=== PATIENT | male | born 1995 | race Caucasian/White ===

== ENCOUNTER 2017-11-21 20:04 | Emergency (ER) | payer OTHER ==
[~2017-11-21] VITALS: Ht 172.7 cm; Wt 68.0 kg
[~2017-11-21 20:04] MED LIST: AMOXICILLIN 50500 M1 PO; AMOXICILLIN500 M1 PO; ATIVAN1 MG PO; BACTRIM DS TAB1 EACH; FLEXERIL PO; IBUPROFEN 800800 MG PO; MOBIC7.5 MG PO; NOHOMEMEDICATIONS; NORCO 5-325 TA1 EACH PO; PAROXETINE HCL10 MG PO; PROTONIX40 MG PO; PROZAC 10 MG CA10 MG PO; TEGRETOL XR200 MG PO; TESSALON PERLE100 MG PO; TOBRAMYCIN SULFA5 ML OP; VALIUM5 MG PO; [UNRECOGNIZED DRUG - REMARK]
[2017-11-21] MEDS ORDERED: FLEXERIL PO (20:14)
[2017-11-21 20:53] LABS: ABSOLUTE EOSINOPHILS 0.2 thou/uL (0.0-0.7); ABSOLUTE LYMPHOCYTES 1.4 thou/uL (0.8-5.3); ABSOLUTE MONOCYTES 0.7 thou/uL (0.0-1.2); ABSOLUTE NEUTROPHILS 6.4 thou/uL (1.6-8.1); BASOPHILS 0.5 %; EOSINOPHILS 1.8 %; HEMATOCRIT 39.9 % (42.0-52.0); HEMOGLOBIN 13.7 gm/dL (14.0-18.0); LYMPHOCYTES 16.4 %; MCH 31.5 pg (26.0-34.0); MCHC 34.3 g/dL (28.0-37.0); MCV 91.8 fL (80.0-100.0); MONOCYTES 7.9 %; MPV 8.1 fl. (7.2-11.1); NUCLEATED RBCS 0 /100WBC; PLATELET COUNT* 235 thou/uL (150-400); POLYS 73.4 %; RBC 4.35 mil/uL (4.50-6.00); WBC 8.7 thou/uL (4.0-11.0)
[2017-11-21 21:00] LABS: ANION GAP 2 mmol/L (7-16); BUN 9 mg/dL (7-18); CALCIUM 7.8 mg/dL (8.5-10.1); CHLORIDE 107 mmol/L (98-107); CO2 29 mmol/L (21-32); GLUCOSE 84 mg/dL (70-99); POTASSIUM 3.7 mmol/L (3.5-5.1); SODIUM 138 mmol/L (136-145)
[2017-11-21 21:08] LABS: ACETAMINOPHEN < 2 ug/mL (10-30); SALICYLATE < 2.8 mg/dL (2.8-20.0)
[2017-11-21 21:09] LABS: ALCOHOL < 10 mg/dL (<10)
[2017-11-21 21:11] LABS: ALBUMIN 2.9 g/dL (3.4-5.0); ALKALINE PHOSPHATASE 87 U/L (46-116); NT-PRO BRAIN NAT PEPTIDE 14 pg/mL (<300); SGOT 16 U/L (15-37); SGPT 18 U/L (30-65); TOTAL BILIRUBIN 0.4 mg/dL (<0.1-1.0); TOTAL PROTEIN 6.9 g/dL (6.4-8.2); TROPONIN-I LEVEL <0.06 ng/mL (<0.06)
[2017-11-21 21:27] VITALS: BP 127/50
[2017-11-21 21:37] LABS: INR 1.1; PROTIME 10.4 Seconds (9.20-11.50)
--- NOTE | 2017-11-22 10:44 | EKG ---
[place] [address] ELECTROCARDIOGRAM REPORT Name: FRANCES MALLOY [id number] Admission: 11/21/17 Attend Phys: Discharge: 11/21/17 Date of : [birth year] Report #: [id number] THIS REPORT FOR: //name// [facility] ED Test Date: 2017-11-21 Test Time: 20:07:28 Pat Name: FRANCES MALLOY Department: Room: Gender: M Magnetic Resonance Technologist: FREDDIE Rebolledo : 1995 Requested By: Bree Escobedo Order Number: [id number] MD: Jv Mejia Measurements Intervals [place] Rate: 96 P: 73 [place]: 135 QRS: 77 QRSD: 104 T: 42 QT: 333 QTc: 421 Interpretive Statements Sinus rhythm Probable left atrial enlargement ST elev, probable normal early repol pattern Compared to ECG 11/07/2016 03:14:02 ST (T wave) deviation still present Electronically Signed On 11-22-2017 10:44:44 CDT by Jv Mejia [email or web address] <ELECTRONICALLY SIGNED> By: Jv Mejia MD, [facility] 11/22/17 1044 06 06 Jv Mejia MD, [facility] /EPI
== END 2017-11-21 21:31 | disposition home or self-care (01) ==
LOC: M.ERS 20:04
PROVIDERS: Emergency Medicine
DX: T48.1X1A Poisoning by skeletal muscle relaxants [neuromuscular blocking agents], accidental (unintentional), initial encounter (principal); Y92.89 Other specified places as the place of occurrence of the external cause; C78.00 Secondary malignant neoplasm of unspecified lung; F41.9 Anxiety disorder, unspecified; F32.9 Major depressive disorder, single episode, unspecified; F17.210 Nicotine dependence, cigarettes, uncomplicated

== ENCOUNTER 2018-02-20 03:46 | Emergency (ER) | payer OTHER ==
[~2018-02-20] VITALS: Ht 180.3 cm; Wt 72.6 kg
[2018-02-20] MEDS ORDERED: RISPERDAL0.5 MG (03:54)
[2018-02-20 05:35] VITALS: BP 111/86
--- NOTE | 2018-02-20 13:04 | EKG ---
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 : 1995 Requested By: Bree Escobedo Order Number: [id number] MD: Jv Mejia Measurements Intervals [place] Rate: 102 P: 74 [place]: 144 QRS: 56 QRSD: 88 T: 59 QT: 329 QTc: 429 Interpretive Statements Sinus tachycardia Consider right atrial enlargement Borderline repolarization abnormality Compared to ECG 11/21/2017 20:07:28 Sinus rhythm no longer present ST (T wave) deviation now seen Electronically Signed On 02-20-2018 13:04:13 CDT by Jv Mejia [email or web address] <ELECTRONICALLY SIGNED> By: Jv Mejia MD, [facility] 02/20/18 1304 0400 0400 Jv Mejia MD, FAC /EPI
== END 2018-02-20 05:37 | disposition home or self-care (01) ==
LOC: M.ERS 03:46
DX: L53.9 Erythematous condition, unspecified (principal); T43.625A Adverse effect of amphetamines, initial encounter; F41.9 Anxiety disorder, unspecified; F32.9 Major depressive disorder, single episode, unspecified; F17.210 Nicotine dependence, cigarettes, uncomplicated; Y92.89 Other specified places as the place of occurrence of the external cause

== ENCOUNTER 2018-03-23 20:27 | Emergency (ER) | payer OTHER ==
[~2018-03-23] VITALS: Ht 170.2 cm; Wt 72.6 kg
[~2018-03-23 20:27] MED LIST changes: +RISPERDAL0.5 MG
[2018-03-23] MEDS ORDERED: FLEXERIL PO (20:36)
[2018-03-23] MEDS ORDERED: DEPAKOTE125 MG PO (20:36)
[2018-03-23 22:45] VITALS: BP 140/90
--- NOTE | 2018-03-25 11:11 | EKG ---
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 : 1995 Requested By: Bree Escobedo Order Number: [id number] MD: Julio Benitez Measurements Intervals [place] Rate: 119 P: 67 MS: 115 QRS: 74 QRSD: 82 T: -23 QT: 317 QTc: 447 Interpretive Statements Sinus tachycardia Right atrial enlargement Nonspecific T abnormalities, lateral leads Compared to ECG 02/20/2018 04:00:15 T-wave abnormality now present Electronically Signed On 03-25-2018 11:11:23 [employer]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
== END 2018-03-23 22:45 | disposition home or self-care (01) ==
LOC: M.ERS 20:27
DX: F15.10 Other stimulant abuse, uncomplicated (principal); F41.9 Anxiety disorder, unspecified; F32.9 Major depressive disorder, single episode, unspecified; Z90.49 Acquired absence of other specified parts of digestive tract; F17.210 Nicotine dependence, cigarettes, uncomplicated

== ENCOUNTER 2018-04-29 14:49 | Emergency (ER) | payer OTHER ==
[~2018-04-29] VITALS: Ht 170.2 cm; Wt 72.6 kg
[~2018-04-29 14:49] MED LIST changes: +DEPAKOTE125 MG PO
[2018-04-29] MEDS ORDERED: PRAZOSIN 1 MG CA1 M1 PO (15:01)
[2018-04-29] MEDS ORDERED: TRAZODONE 150150 M1 PO (15:01)
[2018-04-29] MEDS ORDERED: ACETAMINOPHEN-1 EAC1 PO (20:27)
[2018-04-29] MEDS ORDERED: NABUMETONE 750750 M1 PO (20:28)
[2018-04-29 20:30] VITALS: BP 141/76
== END 2018-04-29 20:30 | disposition left against medical advice (07) ==
LOC: M.ERS 14:49
DX: M79.621 Pain in right upper arm (principal); R20.2 Paresthesia of skin; F41.9 Anxiety disorder, unspecified; F32.9 Major depressive disorder, single episode, unspecified; F17.210 Nicotine dependence, cigarettes, uncomplicated; Z90.49 Acquired absence of other specified parts of digestive tract

== ENCOUNTER 2018-05-27 03:06 | Emergency (ER) | payer OTHER ==
[~2018-05-27] VITALS: Ht 170.2 cm; Wt 68.0 kg
--- NOTE | ~2018-05-27 | EKG ---
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
[~2018-05-27 03:06] MED LIST changes: +ACETAMINOPHEN-1 EAC1 PO; +NABUMETONE 750750 M1 PO; +PRAZOSIN 1 MG CA1 M1 PO; +TRAZODONE 150150 M1 PO
[2018-05-27 03:49] LABS: ABSOLUTE BASOPHILS 0.1 thou/uL (0.0-0.2); ABSOLUTE EOSINOPHILS 0.2 thou/uL (0.0-0.7); ABSOLUTE LYMPHOCYTES 0.9 thou/uL (0.8-5.3); ABSOLUTE MONOCYTES 0.9 thou/uL (0.0-1.2); ABSOLUTE NEUTROPHILS 5.1 thou/uL (1.6-8.1); BASOPHILS 0.8 %; EOSINOPHILS 2.6 %; HEMOGLOBIN 14.4 gm/dL (14.0-18.0); MCH 31.3 pg (26.0-34.0); MCHC 35.1 g/dL (28.0-37.0); MCV 89.1 fL (80.0-100.0); MONOCYTES 12.6 %; MPV 7.9 fl. (7.2-11.1); NUCLEATED RBCS 0 /100WBC; PLATELET COUNT* 200 thou/uL (150-400); RDW-CV 12.6 % (10.5-14.5); WBC 7.1 thou/uL (4.0-11.0)
[2018-05-27 03:53] VITALS: BP 171/92
[2018-05-27 04:07] LABS: ANION GAP 6 mmol/L (7-16); BUN 12 mg/dL (7-18); CALCIUM 8.5 mg/dL (8.5-10.1); CHLORIDE 104 mmol/L (98-107); CO2 29 mmol/L (21-32); CREATININE 1.2 mg/dL (0.6-1.3); GLUCOSE 105 mg/dL (70-99); POTASSIUM 3.7 mmol/L (3.5-5.1); SODIUM 139 mmol/L (136-145)
[2018-05-27 04:14] LABS: ALBUMIN 3.7 g/dL (3.4-5.0); ALKALINE PHOSPHATASE 94 U/L (46-116); SGOT 22 U/L (15-37); SGPT 26 U/L (30-65); TOTAL BILIRUBIN 0.6 mg/dL (<0.1-1.0); TOTAL PROTEIN 7.9 g/dL (6.4-8.2); TROPONIN-I LEVEL <0.06 ng/mL (<0.06)
== END 2018-05-27 03:55 | disposition left against medical advice (07) ==
LOC: M.ERS 03:06
PROVIDERS: Personal Emergency Response Attendant
DX: F15.129 Other stimulant abuse with intoxication, unspecified (principal); R07.89 Other chest pain; F17.210 Nicotine dependence, cigarettes, uncomplicated; F41.9 Anxiety disorder, unspecified; F32.9 Major depressive disorder, single episode, unspecified; Z90.49 Acquired absence of other specified parts of digestive tract

== ENCOUNTER 2018-07-18 22:48 | Emergency (ER) | payer OTHER ==
[~2018-07-18] VITALS: Ht 170.2 cm; Wt 70.3 kg
[2018-07-19 00:03] LABS: ABSOLUTE BASOPHILS 0.1 thou/uL (0.0-0.2); ABSOLUTE EOSINOPHILS 0.1 thou/uL (0.0-0.7); ABSOLUTE LYMPHOCYTES 1.7 thou/uL (0.8-5.3); ABSOLUTE MONOCYTES 0.7 thou/uL (0.0-1.2); ABSOLUTE NEUTROPHILS 8.1 thou/uL (1.6-8.1); BASOPHILS 0.8 %; EOSINOPHILS 0.9 %; HEMATOCRIT 41.2 % (42.0-52.0); HEMOGLOBIN 14.3 gm/dL (14.0-18.0); LYMPHOCYTES 15.5 %; MCHC 34.7 g/dL (28.0-37.0); MCV 89.6 fL (80.0-100.0); MONOCYTES 6.9 %; MPV 8.1 fl. (7.2-11.1); NUCLEATED RBCS 0 /100WBC; PLATELET COUNT* 266 thou/uL (150-400); POLYS 75.9 %; RDW-CV 13.2 % (10.5-14.5); WBC 10.6 thou/uL (4.0-11.0)
[2018-07-19 00:19] LABS: ANION GAP 11 mmol/L (7-16); BUN 14 mg/dL (7-18); CALCIUM 9.1 mg/dL (8.5-10.1); CHLORIDE 102 mmol/L (98-107); CO2 24 mmol/L (21-32); CREATININE 1.1 mg/dL (0.6-1.3); GLUCOSE 74 mg/dL (70-99); POTASSIUM 3.7 mmol/L (3.5-5.1); SODIUM 137 mmol/L (136-145); TROPONIN-I LEVEL <0.06 ng/mL (<0.06)
[2018-07-19 00:22] LABS: ALKALINE PHOSPHATASE 92 U/L (46-116); SGOT 22 U/L (15-37); SGPT 25 U/L (30-65); TOTAL BILIRUBIN 0.5 mg/dL (<0.1-1.0); TOTAL PROTEIN 8.6 g/dL (6.4-8.2)
[2018-07-19 01:17] VITALS: BP 144/89
--- NOTE | 2018-07-20 15:02 | EKG ---
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: : 1995 Requested By: Vero Snell Order Number: [id number] MD: Gregorio Peraza Measurements Intervals [place] Rate: 105 P: 82 [place]: 140 QRS: 70 QRSD: 95 T: 4 QT: 316 QTc: 418 Interpretive Statements Sinus tachycardia Biatrial enlargement Borderline T wave abnormalities Compared to ECG 05/27/2018 03:12:51 T-wave abnormality now present Sinus rhythm no longer present Electronically Signed On 07-20-2018 15:02:41 CDT by Gregorio Peraza [email or web address] <ELECTRONICALLY SIGNED> By: Gregorio Peraza MD, [facility] 07/20/18 1502 2255 2255 Gregorio Peraza MD, [facility] /EPI
== END 2018-07-19 01:17 | disposition left against medical advice (07) ==
LOC: M.ERS 22:48
PROVIDERS: Personal Emergency Response Attendant
DX: F15.10 Other stimulant abuse, uncomplicated (principal); F17.210 Nicotine dependence, cigarettes, uncomplicated; F41.9 Anxiety disorder, unspecified; F32.9 Major depressive disorder, single episode, unspecified; Z90.49 Acquired absence of other specified parts of digestive tract

== ENCOUNTER 2018-08-24 01:12 | Emergency (ER) | payer OTHER ==
[~2018-08-24] VITALS: Ht 170.2 cm; Wt 72.6 kg
[2018-08-24 01:59] VITALS: BP 189/92
== END 2018-08-24 02:00 | disposition home or self-care (01) ==
LOC: M.ERS 01:12
DX: M77.9 Enthesopathy, unspecified (principal); F41.9 Anxiety disorder, unspecified; F32.9 Major depressive disorder, single episode, unspecified; F17.210 Nicotine dependence, cigarettes, uncomplicated; Z90.49 Acquired absence of other specified parts of digestive tract

== ENCOUNTER 2018-09-14 09:00 | Emergency (ER) | payer OTHER ==
[~2018-09-14] VITALS: Ht 170.2 cm; Wt 72.6 kg
[2018-09-14 10:44] VITALS: BP 157/83
== END 2018-09-14 10:45 | disposition home or self-care (01) ==
LOC: M.ERS 09:00
DX: S01.111A Laceration without foreign body of right eyelid and periocular area, initial encounter (principal); S01.511A Laceration without foreign body of lip, initial encounter; F41.9 Anxiety disorder, unspecified; F32.9 Major depressive disorder, single episode, unspecified; Z90.49 Acquired absence of other specified parts of digestive tract; F17.210 Nicotine dependence, cigarettes, uncomplicated; X99.1XXA Assault by knife, initial encounter; Y93.89 Activity, other specified; Y92.89 Other specified places as the place of occurrence of the external cause; Y99.8 Other external cause status

== ENCOUNTER 2018-11-27 04:30 | Emergency (ER) | payer OTHER ==
[~2018-11-27] VITALS: Ht 170.2 cm; Wt 70.3 kg
[2018-11-27 05:03] LABS: ABSOLUTE LYMPHOCYTES 1.2 thou/uL (0.8-5.3); ABSOLUTE MONOCYTES 0.8 thou/uL (0.0-1.2); ABSOLUTE NEUTROPHILS 4.6 thou/uL (1.6-8.1); BASOPHILS 0.7 %; EOSINOPHILS 0.5 %; HEMATOCRIT 40.9 % (42.0-52.0); HEMOGLOBIN 13.8 gm/dL (14.0-18.0); MCH 30.2 pg (26.0-34.0); MCHC 33.8 g/dL (28.0-37.0); MCV 89.2 fL (80.0-100.0); MONOCYTES 11.8 %; MPV 8.1 fl. (7.2-11.1); NUCLEATED RBCS 0 /100WBC; PLATELET COUNT* 250 thou/uL (150-400); RBC 4.59 mil/uL (4.50-6.00); WBC 6.7 thou/uL (4.0-11.0)
[2018-11-27 05:14] LABS: ANION GAP 8 mmol/L (7-16); BUN 16 mg/dL (7-18); CALCIUM 8.8 mg/dL (8.5-10.1); CHLORIDE 106 mmol/L (98-107); CO2 26 mmol/L (21-32); CREATININE 1.2 mg/dL (0.6-1.3); GLUCOSE 121 mg/dL (70-99); POTASSIUM 3.9 mmol/L (3.5-5.1); SODIUM 140 mmol/L (136-145)
[2018-11-27 05:23] LABS: ALBUMIN 3.8 g/dL (3.4-5.0); ALKALINE PHOSPHATASE 91 U/L (46-116); SGOT 16 U/L (15-37); SGPT 26 U/L (30-65); TOTAL BILIRUBIN 0.4 mg/dL (<0.1-1.0); TOTAL PROTEIN 8.1 g/dL (6.4-8.2); TROPONIN-I LEVEL <0.06 ng/mL (<0.06)
[2018-11-27 06:41] VITALS: BP 121/64
--- NOTE | 2018-11-27 16:30 | EKG ---
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 : 1995 Requested By: Vero Snell Order Number: [id number] MD: Gregorio Peraza Measurements Intervals [place] Rate: 101 P: 81 [place]: 139 QRS: 57 QRSD: 90 T: 41 QT: 330 QTc: 428 Interpretive Statements Sinus tachycardia Compared to ECG 07/18/2018 22:55:51 Atrial abnormality no longer present T-wave abnormality no longer present Electronically Signed On 11-27-2018 16:29:53 CDT by Gregorio Peraza [email or web address] <ELECTRONICALLY SIGNED> By: Gregorio Peraza MD, [facility] 11/27/18 1629 0 0 Gregorio Peraza MD, FACC /EPI
== END 2018-11-27 06:43 | disposition home or self-care (01) ==
LOC: M.ERS 04:30
PROVIDERS: Personal Emergency Response Attendant
DX: F15.10 Other stimulant abuse, uncomplicated (principal); R07.89 Other chest pain; F41.9 Anxiety disorder, unspecified; F32.9 Major depressive disorder, single episode, unspecified; F17.210 Nicotine dependence, cigarettes, uncomplicated; Z90.49 Acquired absence of other specified parts of digestive tract

== ENCOUNTER 2019-03-26 16:45 | Inpatient (IN) | payer OTHER ==
[~2019-03-26] VITALS: Ht 170.2 cm; Wt 76.2 kg
--- NOTE | ~2019-03-26 | H ---
[address] [address] HISTORY AND PHYSICAL Name: FRANCES MALLOY Room: [address] M.R.#: [id number] Admission: 03/26/19 Attend Phys: Susan Leiva Discharge: 03/26/19 Date of : [birth year] Report #: [id number] THIS REPORT FOR: //name// Patient was here less than 24 hour please refer to the final summation note. Patient left against medical advice. By: 0701Medical Records Staff LETITIA /SHAY
[2019-03-26 16:59] VITALS: BP 171/90
[2019-03-26 17:25] LABS: CALCIUM 9.2 mg/dL (8.5-10.1); CREATININE 1.2 mg/dL (0.6-1.3); POTASSIUM 3.1 mmol/L (3.5-5.1)
[2019-03-26 17:27] LABS: INR 1.1; PROTIME 11.1 Seconds (9.20-11.50)
[2019-03-26 17:30] LABS: ALBUMIN 4.1 g/dL (3.4-5.0); TOTAL BILIRUBIN 0.6 mg/dL (<0.1-1.0); TOTAL PROTEIN 8.5 g/dL (6.4-8.2)
[2019-03-26 17:48] LABS: ABSOLUTE LYMPHOCYTES 1.7 thou/uL (0.8-5.3); ABSOLUTE MONOCYTES 0.9 thou/uL (0.0-1.2); ABSOLUTE NEUTROPHILS 6.8 thou/uL (1.6-8.1); BASOPHILS 0.3 %; EOSINOPHILS 0.2 %; HEMOGLOBIN 15.3 gm/dL (14.0-18.0); LYMPHOCYTES 17.8 %; MCH 31.5 pg (26.0-34.0); MCHC 34.7 g/dL (28.0-37.0); MONOCYTES 9.9 %; MPV 8.7 fl. (7.2-11.1); NUCLEATED RBCS 0 /100WBC; PLATELET COUNT* 275 thou/uL (150-400); POLYS 71.8 %; RBC 4.84 mil/uL (4.50-6.00); RDW-CV 13.2 % (10.5-14.5); WBC 9.4 thou/uL (4.0-11.0)
[2019-03-26 18:45] VITALS: BP 160/100
[2019-03-26 19:43] LABS: URINE BILIRUBIN NEGATIVE (Negative); URINE BLOOD NEGATIVE (Negative); URINE CLARITY SL CLOUDY; URINE COLOR YELLOW; URINE GLUCOSE-RANDOM NEGATIVE (Negative); URINE KETONES 1+ (Negative); URINE LEUKOCYTES-REFLEX NEGATIVE (Negative); URINE NITRITE-REFLEX NEGATIVE (Negative); URINE PROTEIN NEGATIVE (Negative); URINE SPECIFIC GRAVITY 1.015 (1.005-1.030); URINE UROBILINOGEN 0.2 E.U./dl (0.2-1.0)
[2019-03-26 19:53] LABS: BACTERIA-REFLEX 1-9 Few /HPF (None Seen); CASTS None Seen /LPF (None Seen); MUCUS 0-3 Light strn/LPF (None Seen); SQUAMOUS NONE SEEN /LPF (0-3); URINE RBC 0-2 Rare /HPF (0-2); URINE WBC-REFLEX 0-5 Rare /HPF (0-5)
[2019-03-26 19:55] LABS: AMORPHOUS PHOSPHATES Many /LPF (None Seen)
[2019-03-26 20:04] VITALS: BP 147/87
[2019-03-26 20:11] LABS: AMP/METHAMP POSITIVE (Negative); BARBITURATES Negative (Negative); BENZODIAZEPINES Negative (Negative); COCAINE Negative (Negative); METHADONE Negative (Negative); OPIATES Negative (Negative); PCP Negative (Negative); THC Negative (Negative)
--- NOTE | 2019-03-27 10:36 | EKG ---
[place] [address] ELECTROCARDIOGRAM REPORT Name: FRANCES MALLOY Room: [address] [place] M.R.#: [id number] Admission: 03/26/19 Attend Phys: Susan Leiva Discharge: 03/26/19 Date of : [birth year] Report #: [id number] THIS REPORT FOR: //name// [facility] ED Test Date: 2019-03-26 Test Time: 17:10:23 Pat Name: FRANCES MALLOY Department: Room: [facility] Gender: M Transmission Assembler: BRENDA : 1995 Requested By: Shadi Daly Order Number: [id number] MD: Jv Mejia Measurements Intervals [place] Rate: 86 P: 75 [place]: 151 QRS: 52 QRSD: 83 T: 60 QT: 333 QTc: 399 Interpretive Statements Sinus rhythm Biatrial enlargement Borderline T wave abnormalities Compared to ECG 11/27/2018 04:31:26 Sinus tachycardia no longer present Electronically Signed On 03-27-2019 10:36:34 MANAGER COMPLETIONS by Jv Mejia [email or web address] <ELECTRONICALLY SIGNED> By: Jv Mejia MD, [facility] 03/27/19 1036 1710 1710 Jv Mejia MD, FAC /EPI
== END 2019-03-26 21:35 | disposition left against medical advice (07) | DRG 313 ==
LOC: M.ERS 16:45 → M.TBA-ER 17:54 → M.2W 19:28
PROVIDERS: Emergency Medicine Emergency Medical Services; ADMIT Internal Medicine
DX: R07.9 Chest pain, unspecified (principal); F41.9 Anxiety disorder, unspecified; F32.9 Major depressive disorder, single episode, unspecified; Z53.29 Procedure and treatment not carried out because of patient's decision for other reasons; Z90.49 Acquired absence of other specified parts of digestive tract; Z79.899 Other long term (current) drug therapy

== ENCOUNTER 2019-06-22 14:29 | Emergency (ER) | payer OTHER ==
[~2019-06-22] VITALS: Ht 170.2 cm; Wt 75.8 kg
[2019-06-22] MEDS ORDERED: DESYREL150 MG PO (14:49)
[2019-06-22] MEDS ORDERED: LEXAPRO20 MG PO (14:50)
[2019-06-22] MEDS ORDERED: RISPERIDONE 00.25 MG PO (14:50)
[2019-06-22] MEDS ORDERED: HYDROXYZINE HCL25 M2 PO (14:52)
[2019-06-22 15:02] LABS: HEMATOCRIT 44.2 % (42.0-52.0); HEMOGLOBIN 15.4 gm/dL (14.0-18.0); MCH 31.7 pg (26.0-34.0); MCHC 34.8 g/dL (28.0-37.0); MCV 91.2 fL (80.0-100.0); MPV 8.6 fl. (7.2-11.1); RBC 4.85 mil/uL (4.50-6.00); RDW-CV 13.4 % (10.5-14.5); WBC 11.4 thou/uL (4.0-11.0)
[2019-06-22 15:07] LABS: CALCIUM 9.2 mg/dL (8.5-10.1); CREATININE 1.1 mg/dL (0.6-1.3); POTASSIUM 3.1 mmol/L (3.5-5.1)
[2019-06-22 15:11] LABS: ALBUMIN 4.5 g/dL (3.4-5.0); TOTAL PROTEIN 9.1 g/dL (6.4-8.2)
[2019-06-22 15:20] VITALS: BP 164/109
[2019-06-22 15:26] LABS: SALICYLATE 3.8 mg/dL (2.8-20.0)
[2019-06-22 15:27] LABS: ACETAMINOPHEN < 2 ug/mL (10-30); ALCOHOL < 10 mg/dL (<10)
== END 2019-06-22 15:23 | disposition home or self-care (01) ==
LOC: M.ERS 14:29
PROVIDERS: Personal Emergency Response Attendant
DX: F15.10 Other stimulant abuse, uncomplicated (principal); F41.9 Anxiety disorder, unspecified; F32.9 Major depressive disorder, single episode, unspecified; F17.210 Nicotine dependence, cigarettes, uncomplicated; Z90.49 Acquired absence of other specified parts of digestive tract; Z90.89 Acquired absence of other organs

== ENCOUNTER 2019-06-24 00:18 | Emergency (ER) | payer OTHER ==
[~2019-06-24] VITALS: Ht 170.2 cm; Wt 74.8 kg
[~2019-06-24 00:18] MED LIST changes: +DESYREL150 MG PO; +HYDROXYZINE HCL25 M2 PO; +LEXAPRO20 MG PO; +RISPERIDONE 00.25 MG PO
[2019-06-24 00:49] LABS: ABSOLUTE BASOPHILS 0.1 thou/uL (0.0-0.2); ABSOLUTE EOSINOPHILS 0.1 thou/uL (0.0-0.7); ABSOLUTE LYMPHOCYTES 1.8 thou/uL (0.8-5.3); ABSOLUTE MONOCYTES 0.8 thou/uL (0.0-1.2); ABSOLUTE NEUTROPHILS 7.5 thou/uL (1.6-8.1); BASOPHILS 0.6 %; EOSINOPHILS 1.3 %; HEMATOCRIT 42.2 % (42.0-52.0); HEMOGLOBIN 14.9 gm/dL (14.0-18.0); LYMPHOCYTES 17.5 %; MCH 32.2 pg (26.0-34.0); MCHC 35.3 g/dL (28.0-37.0); MCV 91.2 fL (80.0-100.0); MONOCYTES 7.5 %; MPV 8.4 fl. (7.2-11.1); NUCLEATED RBCS 0 /100WBC; PLATELET COUNT* 271 thou/uL (150-400); POLYS 73.1 %; RBC 4.62 mil/uL (4.50-6.00); RDW-CV 13.2 % (10.5-14.5); WBC 10.2 thou/uL (4.0-11.0)
[2019-06-24 01:00] LABS: APTT 26.1 Seconds (25.0-31.3); PROTIME 10.7 Seconds (9.20-11.50)
[2019-06-24 01:16] LABS: CALCIUM 8.6 mg/dL (8.5-10.1); CREATININE 1.3 mg/dL (0.6-1.3); POTASSIUM 3.5 mmol/L (3.5-5.1)
[2019-06-24 01:28] LABS: ALBUMIN 4.4 g/dL (3.4-5.0); CK-MB MASS 2.8 ng/mL (<0.5-3.6); MAGNESIUM 1.6 mg/dL (1.8-2.4); TOTAL BILIRUBIN 0.7 mg/dL (<0.1-1.0); TOTAL PROTEIN 8.7 g/dL (6.4-8.2)
[2019-06-24 02:04] VITALS: BP 160/99
--- NOTE | 2019-06-24 13:57 | EKG ---
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: : 1995 Requested By: Collin Espana Order Number: [id number] MD: Yaw Sin Measurements Intervals [place] Rate: 124 P: 78 [place]: 130 QRS: 84 QRSD: 83 T: 34 QT: 291 QTc: 418 Interpretive Statements Sinus tachycardia LAE, consider biatrial enlargement Compared to ECG 03/26/2019 17:10:23 Sinus rate has increased T-wave abnormality no longer present Electronically Signed On 06-24-2019 10:01:43 TONE REGULATOR by Yaw Sin [email or web address] <ELECTRONICALLY SIGNED> By: Yaw Sin MD, [facility] 06/24/19 1001 0024 Yaw Sin MD, [facility] /EPI
== END 2019-06-24 02:06 | disposition home or self-care (01) ==
LOC: M.ERS 00:18
PROVIDERS: Family Medicine
DX: F41.0 Panic disorder [episodic paroxysmal anxiety] (principal); F32.9 Major depressive disorder, single episode, unspecified; F17.210 Nicotine dependence, cigarettes, uncomplicated; Z90.49 Acquired absence of other specified parts of digestive tract